=== PATIENT | female | born 1955 | race Caucasian/White ===

== ENCOUNTER 2017-04-19 11:42 | Inpatient (IN) | payer OTHER ==
[~2017-04-19] VITALS: Ht 165.1 cm; Wt 72.7 kg
[2017-04-19 16:00] VITALS: BP 95/57; PULSE 92; RESP 18
[2017-04-19 16:05] VITALS: BP 95/57; RESP 18
[2017-04-19] MEDS ORDERED: HYDROCODONE/APAP (5/325) TAB PO PRN (17:00)
[2017-04-19] MEDS ORDERED: ZOLPIDEM 5 MG TAB PO PRN (17:00)
[2017-04-19] MEDS ORDERED: oxyCODONE 5 MG TAB PO PRN (17:00)
[2017-04-19] MEDS ORDERED: DIPHENHYDRAMINE 25 MG CAP PO PRN (17:00)
[2017-04-19] MEDS ORDERED: LACTULOSE 30ML CUP PO PRN (17:30)
[2017-04-19] MEDS ORDERED: ACETAMINOPHEN 325 MG TAB PO PRN (17:30)
[2017-04-19] MEDS ORDERED: MAGNESIUM HYDROXIDE 30ML CUP PO PRN (17:30)
[2017-04-19 17:35] VITALS: Ht 165.1 cm; Wt 72.7 kg
[2017-04-19] MEDS: RIVAROXABAN 10 MG TABLET PO SCH (18:03)
[2017-04-19 18:26] LABS: ADD UMIC NO; UR ASCORBIC ACID NEGATIVE (NEGATIVE); UR BILIRUBIN (Dip) NEGATIVE (NEGATIVE); UR BLOOD (Dip) NEGATIVE (NEGATIVE); UR CLARITY CLEAR (CLEAR); UR COLOR YELLOW (YELLOW); UR GLUCOSE (Dip) NEGATIVE (NEGATIVE); UR KETONES (Dip) NEGATIVE (NEGATIVE); UR LEUKOCYTE ESTERASE (Dip) NEGATIVE Leu/ul (NEGATIVE); UR NITRITE (Dip) NEGATIVE (NEGATIVE); UR SPECIFIC GRAVITY (Dip) 1.011 (1.003-1.030); UR TOTAL PROTEIN (Dip) NEGATIVE (NEGATIVE); UR UROBILINOGEN (Dip) 1+ mg/dL (NEGATIVE)
[2017-04-19 20:00] VITALS: BP 100/59; PULSE 98; RESP 18
[2017-04-19] MEDS: DOCUSATE SODIUM 100 MG CAP PO SCH (20:53)
[2017-04-19] MEDS: PRAMIPEXOLE 0.25 MG TAB PO SCH (20:54)
[2017-04-19] MEDS: PANTOPRAZOLE (EC) 40 MG TAB PO SCH (20:54)
[2017-04-19] MEDS: GABAPENTIN 300 MG CAP PO SCH (20:54)
[2017-04-19] MEDS: MUPIROCIN 2% 22 GM OINT TOP SCH (20:54)
[2017-04-19] MEDS: SENNA TAB PO SCH (20:54)
[2017-04-20 03:00] VITALS: BP 96/58; PULSE 87; RESP 16
[2017-04-20 07:00] VITALS: BP 102/62; RESP 18
[2017-04-20 07:37] LABS: BASOPHILS % 0.5 % (0.0-2.0); EOSINOPHILS # 0.2 10^3/ul (0.0-0.5); HEMATOCRIT 25.6 % (37.0-47.0); HEMOGLOBIN 8.3 g/dl (12.0-16.0); LYMPHOCYTES # 0.9 10^3/ul (0.8-2.9); LYMPHOCYTES % 19.9 % (15.0-51.0); MEAN CORPUSCULAR HEMOGLOBIN 30.5 pg (29.0-33.0); MEAN CORPUSCULAR HGB CONC 32.4 g/dl (32.0-37.0); MEAN CORPUSCULAR VOLUME 94.1 fl (82.0-101.0); MEAN PLATELET VOLUME 10.5 fl (7.4-10.4); MONOCYTE # 0.5 10^3/ul (0.3-0.9); MONOCYTES % 11.9 % (0.0-11.0); NEUTROPHIL # 2.7 10^3/ul (1.6-7.5); PLATELET COUNT 215 10^3/UL (140-415); RED BLOOD COUNT 2.72 10^6/ul (4.20-5.40); RED CELL DISTRIBUTION WIDTH 13.8 % (11.5-14.5); WHITE BLOOD COUNT 4.3 10^3/ul (4.8-10.8)
[2017-04-20 08:11] LABS: ALBUMIN 2.8 g/dl (3.3-4.9); ALBUMIN/GLOBULIN RATIO 0.9; BILIRUBIN,INDIRECT 0.8 mg/dl (0-1.1); BILIRUBIN,TOTAL 0.8 mg/dl (0.2-1.3); CALCIUM 8.5 mg/dl (8.4-10.2); CREATININE 0.65 mg/dl (0.44-1.00); POTASSIUM 3.9 mmol/L (3.5-5.1); TOTAL PROTEIN 5.9 g/dl (6.1-8.1)
[2017-04-20 08:46] LABS: IRON 30 ug/dl (35-150)
[2017-04-20 08:55] LABS: TOTAL IRON BINDING CAPACITY 236 ug/dl (241-421)
[2017-04-20] MEDS ORDERED: PROPRANOLOL (LA) 80 MG CAP PO SCH (09:00)
--- NOTE | 2017-04-20 09:23 | HP ---
DATE OF ADMISSION: 04/19/2017 CHIEF COMPLAINT: Status post right hip replacement. HISTORY OF PRESENT ILLNESS: This is a 61-year-old female with a past medical history of osteoarthri tis, history of COPD who was admitted to an outside hospital at [facility] to undergo elective rig ht hip arthroplasty. The patient has had chronic right hip pain and failed conservative measures; a s a result, she underwent a total right hip arthroplasty by Dr. Arreaga 04/15/2017. The patient's co urse was uncomplicated following surgery. The patient, however, had a significant decline in her pr emorbid state and was transferred to [facility] acute rehab for continued care. Upon my evaluation of the patient at this time, she is currently stable. Denies any fevers, chills, nausea, vomiting, any shortness of breath. PAST MEDICAL HISTORY: History of chronic obstructive pulmonary disease, asthma, osteoarthritis. 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 FAMILY HISTORY: Noncontributory. ALLERGIES: Please see list. SOCIAL HISTORY: History of tobacco use years ago and has quit. MEDICATIONS: The patient's medications have been reviewed and reconciled. REVIEW OF SYSTEMS: A 14 point review of systems was conducted. Pertinent positives in HPI, otherwi se negative. PHYSICAL EXAMINATION: VITAL SIGNS: Blood pressure is 96/58, respirations 16, pulse 87, temperature 98.0. HEENT: Head is normocephalic. NECK: Supple. HEART: Regular rate. LUNGS: Show diminished breath sounds at base. ABDOMEN: Soft, nontender to palpation without rebound or guarding. EXTREMITIES: Negative for clubbing, cyanosis, no edema. DERMATOLOGIC: No rashes. MUSCULOSKELETAL: No joint effusions. NEUROLOGIC: No change in exam. MEDICATIONS: The patient's medications have been reviewed. LABORATORY DATA: Shows a white count 4.3, hemoglobin 8.3, hematocrit 25.6, platelet count is 10.5. Urinalysis pending. ASSESSMENT AND PLAN: This is a 61-year-old female who presents with: 1. Status post right hip arthroplasty. The patient is currently stable. Continue pain control. C ontinue physical therapy and occupational therapy per acute rehabilitation. 2. Anemia, likely secondary to operative blood loss. Monitor hemoglobin and hematocrit levels. We will also check an iron panel. 3. History of chronic obstructive pulmonary disease. The patient is currently compensated. Contin ue medical management. We will give nebulizers as needed. 4. History of restless leg syndrome. Continue Requip. 5. Insomnia. Continue Ambien. 6. Constipation. Continue current bowel regimen. 7. Gastrointestinal and deep venous thrombosis prophylaxis. Continue Xarelto. 8. General debility. Continue physical therapy. 9. Neuropathy. Continue Neurontin. Please note I spent up to 25 minutes in [id number] time with the patient. CODE STATUS: The patient is FULL CODE. Dictated By: HUY WADE DO NR/NTS Conf#: [id number] DID#: [id number] CC: SILVA RICHEY MD; DIONISIO MAHONEY DO;*EndCC*
--- NOTE | 2017-04-20 09:25 | CONS ---
DATE OF ADMISSION: 04/19/2017 DATE OF CONSULTATION: 04/20/2017 REHABILITATION POST ADMISSION PHYSICIAN EVALUATION REHABILITATION IMPAIRMENT CATEGORY: Other orthopedic disorder with right hip osteoarthritis status post right total hip replacement. ACTIVE COMORBIDITIES: 1. Acute pain syndrome. 2. Chronic obstructive pulmonary disease. 3. Hypotension. 4. History of cerebellar cyst removal. 5. Impairments in self-care and mobility. HISTORY OF PRESENT ILLNESS: The patient is a pleasant 61-year-old female with a history of COPD, an d cerebellar cyst removal in addition osteoarthritis who was noted to have severe increasing right h ip pain despite conservative measures. The patient underwent right hip replacement on 04/15/2017. Postoperative course has been notable for episode of hypotension in addition to impairments in self- care and mobility as compared to baseline. The patient has been cleared to transfer to the rehabili tation unit for comprehensive interdisciplinary rehab care. FUNCTIONAL HISTORY: Prior to recent events, she was independent in self-care tasks and mobility. Currently, the patient requires moderate assist for self-care and mobility tasks. I have reviewed the preadmission screen and the patient's current functional status is consistent wi th the preadmission screen. SOCIAL HISTORY: The patient lives at home with family and hopes to return there upon discharge. PAST MEDICAL HISTORY: 1. Osteoarthritis. 2. Chronic obstructive pulmonary disease. 3. Asthma. 4. Cerebellar cyst removal. CURRENT MEDICATIONS: 1. Rivaroxaban 10 mg p.o. daily. 2. Protonix 40 mg p.o. daily. 3. Gabapentin 600 mg p.o. t.i.d. 4. Propranolol 80 mg p.o. daily. 5. Folic acid 1 mg p.o. daily. 6. Oxycodone p.r.n. 7. Ambien p.r.n. 8. Ramona p.r.n. ALLERGIES: 1. DILANTIN 2. PENICILLIN. 3. SULFA. 4. BIAXIN. 5. PHENYTOIN. PHYSICAL EXAMINATION: VITAL SIGNS: The patient is currently afebrile with stable vital signs. HEENT: Extraocular motion intact. Oropharynx clear. NECK: Supple. LUNGS: Clear anteriorly. CARDIAC: S1, S2. ABDOMEN: Soft, nontender, positive bowel sounds. NEUROLOGIC: She is awake and alert and oriented x3. She can follow simple 1-step commands. Crania l nerves are grossly intact. She has good strength in bilateral upper extremity and left lower extr emity. Dorsiflexion and plantar flexion intact on the right. PLAN: The patient has been admitted for comprehensive interdisciplinary acute rehab and is anticipa janie to tolerate 3 hours of daily therapy in divided doses for at least 5/7 days a week. Treatment p savage will include: 1. Physical therapy to focus on bed mobility, transfers, and household ambulation with the goal of having the patient reach standby assist level. 2. Occupational therapy to focus on hygiene, grooming, dressing, bathing, and toileting activities with the goal of having patient reach standby assist level. 3. Rehabilitation nursing for carryover of therapeutic interventions, the goal of continent of kale l and bladder, and the goal of pain adequately managed on oral medications. REHABILITATION BARRIER: Pain. INTERVENTION FOR BARRIER: Interdisciplinary approach. ESTIMATED LENGTH OF STAY: Seven days. DISPOSITION GOAL: Home. I acknowledge that I performed a full physical examination on this patient within 24 hours of admiss ion to the rehabilitation unit. I believe the patient is a good candidate for comprehensive interdi sciplinary rehab care and is anticipated to make reasonable goals in a reasonable period of time as outlined above. Dictated By: EVERETT LYNN/LUIS ANGEL Conf#: [id number] DID#: [id number]
[2017-04-20] MEDS: DOCUSATE SODIUM 100 MG CAP PO SCH ×2 (09:38→20:18)
[2017-04-20] MEDS: FOLIC ACID 1 MG TAB PO SCH (09:39)
[2017-04-20] MEDS: PROPRANOLOL 20 MG TAB PO SCH ×2 (09:39→20:19)
[2017-04-20] MEDS: GABAPENTIN 300 MG CAP PO SCH ×3 (09:39→20:18)
[2017-04-20] MEDS: MUPIROCIN 2% 22 GM OINT TOP SCH ×2 (09:40→20:19)
[2017-04-20] MEDS: POTASSIUM CHLORIDE (SR) 10 MEQ TAB PO SCH (09:40)
[2017-04-20 14:00] VITALS: BP 78/51; RESP 18
[2017-04-20 17:00] VITALS: BP 83/51; PULSE 80; RESP 18
[2017-04-20] MEDS: RIVAROXABAN 10 MG TABLET PO SCH (17:44)
[2017-04-20 20:00] VITALS: BP 85/58; RESP 18
[2017-04-20] MEDS: PANTOPRAZOLE (EC) 40 MG TAB PO SCH (20:19)
[2017-04-20] MEDS: PRAMIPEXOLE 0.25 MG TAB PO SCH (20:19)
[2017-04-20] MEDS: SENNA TAB PO SCH (20:19)
[2017-04-20] MEDS: BISACODYL 10 MG SUPP PR PRN (20:19)
[2017-04-21 02:00] VITALS: BP 100/58; RESP 18
[2017-04-21 07:06] LABS: BASOPHILS % 0.5 % (0.0-2.0); EOSINOPHILS # 0.2 10^3/ul (0.0-0.5); EOSINOPHILS % 4.2 % (0.0-7.0); HEMATOCRIT 26.4 % (37.0-47.0); HEMOGLOBIN 8.5 g/dl (12.0-16.0); MEAN CORPUSCULAR HEMOGLOBIN 30.5 pg (29.0-33.0); MEAN CORPUSCULAR HGB CONC 32.2 g/dl (32.0-37.0); MEAN CORPUSCULAR VOLUME 94.6 fl (82.0-101.0); MEAN PLATELET VOLUME 11.7 fl (7.4-10.4); MONOCYTE # 0.6 10^3/ul (0.3-0.9); MONOCYTES % 13.5 % (0.0-11.0); NEUTROPHIL # 2.3 10^3/ul (1.6-7.5); NEUTROPHILS % 56.6 % (39.0-77.0); PLATELET COUNT 190 10^3/UL (140-415); RED BLOOD COUNT 2.79 10^6/ul (4.20-5.40); RED CELL DISTRIBUTION WIDTH 13.8 % (11.5-14.5); WHITE BLOOD COUNT 4.1 10^3/ul (4.8-10.8)
[2017-04-21 07:30] VITALS: BP 95/62; RESP 18
[2017-04-21] MEDS: FOLIC ACID 1 MG TAB PO SCH (08:47)
[2017-04-21] MEDS: MUPIROCIN 2% 22 GM OINT TOP SCH ×2 (08:47→20:31)
[2017-04-21] MEDS: POTASSIUM CHLORIDE (SR) 10 MEQ TAB PO SCH (08:47)
[2017-04-21] MEDS: HYDROCODONE/APAP (10/325) TAB PO PRN ×2 (08:47→20:30)
[2017-04-21] MEDS: PROPRANOLOL 20 MG TAB PO SCH ×2 (08:48→20:31)
[2017-04-21] MEDS: DOCUSATE SODIUM 100 MG CAP PO SCH ×2 (08:48→20:29)
[2017-04-21] MEDS: GABAPENTIN 300 MG CAP PO SCH ×3 (08:48→20:30)
[2017-04-21 08:59] LABS: CALCIUM 8.7 mg/dl (8.4-10.2); CREATININE 0.66 mg/dl (0.44-1.00); POTASSIUM 4.4 mmol/L (3.5-5.1)
[2017-04-21] MEDS: FERROUS SULFATE 60 MG/ML 5ML CUP PO SCH ×3 (09:00→20:29)
[2017-04-21 10:13] LABS: ADD UMIC YES; UR ASCORBIC ACID NEGATIVE (NEGATIVE); UR BILIRUBIN (Dip) NEGATIVE (NEGATIVE); UR BLOOD (Dip) NEGATIVE (NEGATIVE); UR CLARITY CLEAR (CLEAR); UR COLOR YELLOW (YELLOW); UR GLUCOSE (Dip) NEGATIVE (NEGATIVE); UR KETONES (Dip) NEGATIVE (NEGATIVE); UR LEUKOCYTE ESTERASE (Dip) TRACE Leu/ul (NEGATIVE); UR NITRITE (Dip) NEGATIVE (NEGATIVE); UR RBC 1 /HPF (0-5); UR SPECIFIC GRAVITY (Dip) 1.009 (1.003-1.030); UR TOTAL PROTEIN (Dip) NEGATIVE (NEGATIVE); UR UROBILINOGEN (Dip) NEGATIVE (NEGATIVE)
--- NOTE | 2017-04-21 10:14 | PN ---
DATE: 04/21/2017 SUBJECTIVE: The patient is stable. No events overnight. OBJECTIVE: VITAL SIGNS: Blood pressure is 95/62, pulse 82, respiration 18, temperature 98.1. HEENT: Head is normocephalic. NECK: Supple. HEART: Regular rate. LUNGS: Show diminished breath sounds at the base. ABDOMEN: Soft, nontender to palpation. No rebound or guarding. EXTREMITIES: Negative for clubbing, cyanosis, no edema. DERMATOLOGIC: No rashes. MUSCULOSKELETAL: No joint effusions. NEUROLOGIC: No change in exam. MEDICATIONS: The patient's medications have been reviewed. LABORATORY DATA: Shows white count 4.1, hemoglobin 8.5, platelet count 195. Sodium 139, potassium 3.9, BUN 11, creatinine 0.65. The patient has iron saturation of 13. Ferritin is currently pending . ASSESSMENT AND PLAN: 1. Status post right hip arthroplasty. The patient is currently stable. Continue pain control and physical therapy. 2. Anemia, etiology is secondary to iron deficiency. The patient will be started on ferrous sulfat e 325 mg t.i.d. 3. The patient's stool for OB was negative. 4. History of chronic obstructive pulmonary disease, currently compensated. Continue medical manag ement. 5. History of chronic migraines. Continue propranolol. 6. Restless leg syndrome. Continue Requip. 7. Possible seizure disorder. Continue gabapentin. 8. Insomnia. Continue Ambien. 9. Constipation. Continue current bowel regimen. 10. General debility. Continue physical therapy. 11. Gastrointestinal and deep venous thrombosis prophylaxis. Continue Pepcid and Xarelto. Dictated By: HUY WADE DO NR/NTS Conf#: [id number] DID#: [id number] CC: EVERETT RICHEY MD;*EndCC*
--- NOTE | 2017-04-21 11:27 | CONS ---
Date/Time of Note Date/Time of Note DATE: 04/21/17 TIME: 11:27 Consult Date/Type/Reason Admit Date/Time Apr 19, 2017 at 15:14 Initial Consult Date Subjective Doing well Objective cga/sba ambulation 100 feet Vital Signs Date Time Temp Pulse Resp B/P Pulse Ox O2 Delivery O2 Flow Rate FiO2 04/21/17 07:30 98.1 82 18 95/62 97 04/20/17 17:00 Room Air Intake and Output 04/20/17 04/20/17 04/21/17 14:59 22:59 06:59 Intake Total 1600 ml 1560 ml Output Total 200 ml 1000 ml Balance -200 ml 600 ml 1560 ml Results/Medications Result Diagram: 04/21/1728 04/21/17627 Results 24 hrs Laboratory Tests Test 04/20/17 21:50 04/21/17 06:28 04/21/17 09:14 Stool Occult Blood NEGATIVE White Blood Count 4.1 L Red Blood Count 2.79 L Hemoglobin 8.5 L Hematocrit 26.4 L Mean Corpuscular Volume 94.6 Mean Corpuscular Hemoglobin 30.5 Mean Corpuscular Hemoglobin Concent 32.2 Red Cell Distribution Width 13.8 Platelet Count 190 Mean Platelet Volume 11.7 H Neutrophils % 56.6 Lymphocytes % 25.0 Monocytes % 13.5 H Eosinophils % 4.2 Basophils % 0.5 Nucleated Red Blood Cells % 0.0 Neutrophils # 2.3 Lymphocytes # 1.0 Monocytes # 0.6 Eosinophils # 0.2 Basophils # 0.0 Nucleated Red Blood Cells # 0.0 Sodium Level 139 Potassium Level 4.4 Chloride Level 107 Carbon Dioxide Level 24 Anion Gap 12 Blood Urea Nitrogen 11 Creatinine 0.66 Glucose Level 95 Calcium Level 8.7 Phosphorus Level 4.0 Magnesium Level 2.0 Urine Color YELLOW Urine Clarity CLEAR Urine pH 7.0 Urine Specific [place] 1.009 Urine Ketones NEGATIVE Urine Nitrite NEGATIVE Urine Bilirubin NEGATIVE Urine Urobilinogen NEGATIVE Urine Leukocyte Esterase TRACE A Urine Microscopic RBC 1 Urine Microscopic WBC 16 H Urine Hemoglobin NEGATIVE Urine Glucose NEGATIVE Urine Total Protein NEGATIVE Medications Current Medications Pantoprazole (Protonix Tab) 40 mg HS PO Last administered on 04/20/17 20:19; Admin Dose 40 MG; Start 04/19/17 at 21:00 Gabapentin (Neurontin) 600 mg TID PO Last administered on 04/21/17 08:48; Admin Dose 600 MG; Start 04/19/17 at 21:00 Folic Acid (Folic Acid) 1 mg DAILY PO Last administered on 04/21/17 08:47; Admin Dose 1 MG; Start 04/20/17 at 09:00 Oxycodone HCl (Roxicodone) 5 mg Q3H PRN PO SEVERE PAIN Last administered on 21:00; Admin Dose 5 MG; Start 04/19/17 at 17:00 Zolpidem Tartrate (Ambien) 5 mg HS PRN PO SLEEP; Start 04/19/17 at 17:00 Acetaminophen/ Hydrocodone Bitart ([place] (5/325)) 1 tab Q4H PRN PO MILD PAIN 1- 3; Start 04/19/17 at 17:00 Acetaminophen/ Hydrocodone Bitart ([place] (10/325)) 1 tab Q4H PRN PO MODERATE PAIN 4-7 Last administered on 04/21/17 08:47; Admin Dose 1 TAB; Start at 17:00 Diphenhydramine HCl (Benadryl) 25 mg Q6H PRN PO ITCHING; Start 04/19/17 at 17: 00 Mupirocin (Bactroban) 1 applic BID TOP Last administered on 04/21/17 08:47; Admin Dose 1 APPLIC; Start 04/19/17 at 21:00 Pramipexole (Mirapex) 0.5 mg HS PO Last administered on 04/20/17 20:19; Admin Dose 0.5 MG; Start 04/19/17 at 21:00; Stop 05/18/17 at 21:01 Rivaroxaban (Xarelto) 10 mg DAILY@17 PO Last administered on 04/20/17 17:44; Admin Dose 10 MG; Start 04/19/17 at 17:00; Stop 07/17/17 at 17:01 Potassium Chloride (Klor-Con 10) 20 meq DAILY PO Last administered on 08:47; Admin Dose 20 MEQ; Start 04/20/17 at 09:00 Docusate Sodium (Colace) 100 mg BID PO Last administered on 04/21/17 08:48; Admin Dose 100 MG; Start 04/19/17 at 21:00 Magnesium Hydroxide (Milk Of Mag) 30 ml BID PRN PO CONSTIPATION Last administered on 04/20/17 09:46; Admin Dose 30 ML; Start 04/19/17 at 17:30 Senna (Senokot) 1 tab HS PO Last administered on 04/20/17 20:19; Admin Dose 1 TAB; Start 04/19/17 at 21:00 Lactulose (Enulose) 20 gm DAILY PRN PO CONSTIPATION; Start 04/19/17 at 17:30 Acetaminophen (Tylenol Tab) 650 mg Q4H PRN PO PAIN; Start 04/19/17 at 17:30 Bisacodyl (Dulcolax Supp) 10 mg DAILY PRN [place] CONSTIPATION Last administered on 04/20/17 20:19; Admin Dose 10 MG; Start 04/19/17 at 17:30 Propranolol HCl (Inderal) 20 mg BID PO Last administered on 04/20/17 09:39; Admin Dose 20 MG; Start 04/20/17 at 09:00 Ferrous Sulfate (Feosol Liquid Cup) 300 mg TID PO ; Start 04/21/17 at 09:00 Assessment/Plan Additional Assessment/Plan Rehab- Other orthopedic disorder with right hip osteoarthritis status post right total hip replacement. Steady progress, continue treatment plan Acute pain syndrome-under control Chronic obstructive pulmonary disease. Hypotension-improved History of cerebellar cyst removal. EVERETT RICHEY MD Apr 21, 2017 11:27
[2017-04-21 14:00] VITALS: BP 96/63; RESP 20
[2017-04-21] MEDS: RIVAROXABAN 10 MG TABLET PO SCH (17:59)
[2017-04-21 20:10] VITALS: BP 99/58; PULSE 67; RESP 20
[2017-04-21] MEDS: PANTOPRAZOLE (EC) 40 MG TAB PO SCH (20:29)
[2017-04-21] MEDS: SENNA TAB PO SCH (20:30)
[2017-04-21] MEDS: PRAMIPEXOLE 0.25 MG TAB PO SCH (20:31)
[2017-04-22 02:00] VITALS: BP 98/56; PULSE 78; RESP 19
[2017-04-22 08:00] VITALS: BP 152/61; PULSE 60; RESP 22
[2017-04-22] MEDS: GABAPENTIN 300 MG CAP PO SCH ×3 (08:58→20:29)
[2017-04-22] MEDS: FERROUS SULFATE 60 MG/ML 5ML CUP PO SCH ×3 (08:58→20:28)
[2017-04-22] MEDS: DOCUSATE SODIUM 100 MG CAP PO SCH ×2 (08:58→20:29)
[2017-04-22] MEDS: PROPRANOLOL 20 MG TAB PO SCH ×2 (08:59→20:34)
[2017-04-22] MEDS: FOLIC ACID 1 MG TAB PO SCH (08:59)
[2017-04-22] MEDS: HYDROCODONE/APAP (10/325) TAB PO PRN (08:59)
[2017-04-22] MEDS: POTASSIUM CHLORIDE (SR) 10 MEQ TAB PO SCH (08:59)
[2017-04-22] MEDS: MUPIROCIN 2% 22 GM OINT TOP SCH ×2 (09:00→20:31)
--- NOTE | 2017-04-22 11:21 | PN ---
DATE: 04/22/2017 SUBJECTIVE: The patient is stable. No events overnight. The patient is complaining about pain in her left knee site. No other events noted. OBJECTIVE: VITAL SIGNS: Blood pressure is 98/56, respirations 19, pulse 78, temperature 98.6. HEENT: Head is normocephalic. NECK: Supple. HEART: Regular rate. LUNGS: Show diminished breath sounds at base. ABDOMEN: Soft, nontender to palpation without rebound or guarding. EXTREMITIES: Negative for clubbing, cyanosis, no edema. DERMATOLOGIC: No rashes. MUSCULOSKELETAL: No joint effusions. NEUROLOGIC: No change in exam. MEDICATIONS: The patient's medications have been reviewed. LABORATORY DATA: Shows BMP within normal limits. Urinalysis shows 16 WBCs. The patient's urine cu lture shows multiple organisms. ASSESSMENT AND PLAN: 1. Status post right hip arthroplasty. The patient is currently stable. Continue pain control and physical therapy. 2. Anemia with iron deficiency. Continue ferrous sulfate. 3. Chronic obstructive pulmonary disease, currently compensated. Continue to monitor. 4. Chronic migraines. Continue propranolol. 5. Restless leg syndrome. Continue Requip. 6. Possible seizure. Continue gabapentin. 7. Insomnia. Continue Ambien. 8. Asymptomatic pyuria. The patient has a urine culture which is positive. This is likely contami nation or colonization. The patient has no active symptoms of dysuria or urinary tract infection. We will monitor. 9. General debility. Continue physical therapy. 10. Constipation. Continue current bowel regimen. 11. Gastrointestinal and deep venous thrombosis prophylaxis. Continue Pepcid and Xarelto. 12. Right knee pain, etiology may be secondary to arthritis. We will get an x-ray and monitor, con tinue pain control. Dictated By: HUY BRO/LUIS ANGEL Conf#: [id number] DID#: [id number]
--- NOTE | 2017-04-22 11:26 | CONS ---
Date/Time of Note Date/Time of Note DATE: 04/22/17 TIME: 11:24 Consult Date/Type/Reason Admit Date/Time Apr 19, 2017 at 15:14 Subjective Patient motivated, and wants to work towards home tomorrow Objective sba ambulation 150 feet Vital Signs Date Time Temp Pulse Resp B/P Pulse Ox O2 Delivery O2 Flow Rate FiO2 04/22/17 08:00 98.5 60 22 152/61 97 Room Air Intake and Output 04/21/17 04/21/17 04/22/17 14:59 22:59 06:59 Intake Total 860 ml 240 ml Balance 860 ml 240 ml Results/Medications Result Diagram: 04/21/1762704/21/17627 Medications Current Medications Pantoprazole (Protonix Tab) 40 mg HS PO Last administered on 04/21/17 20:29; Admin Dose 40 MG; Start 04/19/17 at 21:00 Gabapentin (Neurontin) 600 mg TID PO Last administered on 04/22/17 08:58; Admin Dose 600 MG; Start 04/19/17 at 21:00 Folic Acid (Folic Acid) 1 mg DAILY PO Last administered on 04/22/17 08:59; Admin Dose 1 MG; Start 04/20/17 at 09:00 Oxycodone HCl (Roxicodone) 5 mg Q3H PRN PO SEVERE PAIN Last administered on 21:00; Admin Dose 5 MG; Start 04/19/17 at 17:00 Zolpidem Tartrate (Ambien) 5 mg HS PRN PO SLEEP; Start 04/19/17 at 17:00 Acetaminophen/ Hydrocodone Bitart ([place] (5/325)) 1 tab Q4H PRN PO MILD PAIN 1- 3; Start 04/19/17 at 17:00 Acetaminophen/ Hydrocodone Bitart ([place] (10/325)) 1 tab Q4H PRN PO MODERATE PAIN 4-7 Last administered on 04/22/17 08:59; Admin Dose 1 TAB; Start at 17:00 Diphenhydramine HCl (Benadryl) 25 mg Q6H PRN PO ITCHING; Start 04/19/17 at 17: 00 Mupirocin (Bactroban) 1 applic BID TOP Last administered on 04/22/17 09:00; Admin Dose 1 APPLIC; Start 04/19/17 at 21:00 Pramipexole (Mirapex) 0.5 mg HS PO Last administered on 04/21/17 20:31; Admin Dose 0.5 MG; Start 04/19/17 at 21:00; Stop 05/18/17 at 21:01 Rivaroxaban (Xarelto) 10 mg DAILY@17 PO Last administered on 04/21/17 17:59; Admin Dose 10 MG; Start 04/19/17 at 17:00; Stop 07/17/17 at 17:01 Potassium Chloride (Klor-Con 10) 20 meq DAILY PO Last administered on 08:59; Admin Dose 20 MEQ; Start 04/20/17 at 09:00 Docusate Sodium (Colace) 100 mg BID PO Last administered on 04/22/17 08:58; Admin Dose 100 MG; Start 04/19/17 at 21:00 Magnesium Hydroxide (Milk Of Mag) 30 ml BID PRN PO CONSTIPATION Last administered on 04/20/17 09:46; Admin Dose 30 ML; Start 04/19/17 at 17:30 Senna (Senokot) 1 tab HS PO Last administered on 04/21/17 20:30; Admin Dose 1 TAB; Start 04/19/17 at 21:00 Lactulose (Enulose) 20 gm DAILY PRN PO CONSTIPATION; Start 04/19/17 at 17:30 Acetaminophen (Tylenol Tab) 650 mg Q4H PRN PO PAIN; Start 04/19/17 at 17:30 Bisacodyl (Dulcolax Supp) 10 mg DAILY PRN [place] CONSTIPATION Last administered on 04/20/17 20:19; Admin Dose 10 MG; Start 04/19/17 at 17:30 Propranolol HCl (Inderal) 20 mg BID PO Last administered on 04/22/17 08:59; Admin Dose 20 MG; Start 04/20/17 at 09:00 Ferrous Sulfate (Feosol Liquid Cup) 300 mg TID PO Last administered on 08:58; Admin Dose 300 MG; Start 04/21/17 at 09:00 Assessment/Plan Additional Assessment/Plan Rehab- Other orthopedic disorder with right hip osteoarthritis status post right total hip replacement. Excellent progress. Anticipate dc tomorrow Acute pain syndrome-under control Chronic obstructive pulmonary disease. Hypotension-improved History of cerebellar cyst removal. EVERETT RICHEY MD Apr 22, 2017 11:26
[2017-04-22] MEDS: RIVAROXABAN 10 MG TABLET PO SCH (17:38)
[2017-04-22 20:00] VITALS: BP 108/62; RESP 18
[2017-04-22] MEDS: BISACODYL 10 MG SUPP PR PRN (20:29)
[2017-04-22] MEDS: SENNA TAB PO SCH (20:29)
[2017-04-22] MEDS: PANTOPRAZOLE (EC) 40 MG TAB PO SCH (20:30)
[2017-04-22] MEDS: PRAMIPEXOLE 0.25 MG TAB PO SCH (20:30)
[2017-04-23 02:00] VITALS: BP 105/61; RESP 18
[2017-04-23 07:30] VITALS: BP 107/52; RESP 20
[2017-04-23] MEDS: FOLIC ACID 1 MG TAB PO SCH (08:51)
[2017-04-23] MEDS: GABAPENTIN 300 MG CAP PO SCH (08:51)
[2017-04-23] MEDS: DOCUSATE SODIUM 100 MG CAP PO SCH (08:51)
[2017-04-23] MEDS: HYDROCODONE/APAP (10/325) TAB PO PRN (08:51)
[2017-04-23] MEDS: POTASSIUM CHLORIDE (SR) 10 MEQ TAB PO SCH (08:51)
[2017-04-23] MEDS: FERROUS SULFATE 60 MG/ML 5ML CUP PO SCH (08:52)
[2017-04-23] MEDS: PROPRANOLOL 20 MG TAB PO SCH (09:00)
[2017-04-23] MEDS: MUPIROCIN 2% 22 GM OINT TOP SCH (09:03)
--- NOTE | 2017-04-23 11:37 | PN ---
DATE: 04/23/2017 SUBJECTIVE: The patient is stable. No events overnight. No fevers, chills, nausea or vomiting. OBJECTIVE: VITAL SIGNS: Blood pressure is 152/61, temperature 98.5, pulse 85, respirations 20. HEENT: Head is normocephalic. NECK: Supple. HEART: Regular rate. LUNGS: Show diminished breath sounds at base. ABDOMEN: Soft, nontender to palpation. No rebound or guarding. EXTREMITIES: Negative for clubbing, cyanosis, no edema. DERMATOLOGIC: No rashes. MUSCULOSKELETAL: No joint effusions. NEUROLOGIC: No change in exam. MEDICATIONS: Have been reviewed. LABORATORY DATA: Has been reviewed. ASSESSMENT AND PLAN: 1. Status post right hip arthroplasty. The patient is currently stable. Continue physical therapy , continue pain control. 2. Anemia with iron deficiency. Continue ferrous sulfate. 3. Chronic obstructive pulmonary disease, currently compensated. 4. Chronic migraines. Continue propranolol. 5. Restless leg syndrome. Continue Requip. 6. Possible seizures. Continue gabapentin. 7. Asymptomatic pyuria. Continue to monitor. No evidence of infection at this time. 8. Constipation. Continue current bowel regimen. 9. Right knee pain, improved. Continue to monitor. 10. Insomnia. Continue Ambien. 11. Gastrointestinal and deep venous thrombosis prophylaxis. Continue Pepcid and Xarelto. Dictated By: HUY BRO/LUIS ANGEL Conf#: [id number] DID#: [id number]
--- NOTE | 2017-04-23 12:00 | DS ---
Date/Time of Note Date/Time of Note DATE: 04/23/17 TIME: 11:59 Discharge Summary Admission/Discharge Info Admit Date/Time Apr 19, 2017 at 15:14 Discharge Date/Time Discharge Diagnosis 1.Other orthopedic disorder with right hip osteoarthritis status post right total hip replacement. 2. Chronic obstructive pulmonary disease. 3. Hypotension. 4. History of cerebellar cyst removal. 5. Improvements in self-care and mobility. Patient Condition: Good Hospital Course Patient was admitted for comprehensive interdisciplinary acute rehabilitation. Patient made steady functional gains and improved from a mod level to a Modified Independent level for self care and mobility, including ambulating over 150 feet with the use of a front wheeled walker. Patient is being discharged home with recommendations for home health PT and OT follow up. DME recommendations: [facility]; [facility]; Shower Chair Patient will follow up with PMD upon DC. Primary Care Provider Care Physician EVERETT Arango MD Apr 23, 2017 12:00
== END 2017-04-23 12:30 | disposition home health service (06) | DRG 561 ==
LOC: VRC 15:14
PROVIDERS: ADMIT Physical Medicine & Rehabilitation; ATTEND Internal Medicine Nephrology
PROC: F07Z5ZZ Bed Mobility Treatment (ICD-10-PCS; principal; 2017-04-20)
PROC: F07Z8ZZ Transfer Training Treatment (ICD-10-PCS; 2017-04-20)
PROC: F07Z9ZZ Gait Training/Functional Ambulation Treatment (ICD-10-PCS; 2017-04-20)
PROC: F08Z2ZZ Grooming/Personal Hygiene Treatment (ICD-10-PCS; 2017-04-21)
PROC: F08Z0ZZ Bathing/Showering Techniques Treatment (ICD-10-PCS; 2017-04-21)
DX: Z47.1 Aftercare following joint replacement surgery (principal); I95.9 Hypotension, unspecified; G62.9 Polyneuropathy, unspecified; I10 Essential (primary) hypertension; J44.9 Chronic obstructive pulmonary disease, unspecified; Z96.641 Presence of right artificial hip joint; D64.9 Anemia, unspecified; G25.81 Restless legs syndrome; F45.8 Other somatoform disorders; R53.81 Other malaise; G89.18 Other acute postprocedural pain; D50.9 Iron deficiency anemia, unspecified; G47.00 Insomnia, unspecified; G43.909 Migraine, unspecified, not intractable, without status migrainosus; M25.561 Pain in right knee
CPT/HCPCS: 80048; 80053; 81001; 81003; 82270; 83540; 83735; 84100; 85025; 87081; 87086; 97110; 97116; 97163; 97167; 97530; 97535